=== PATIENT | female | born 1955 | race Caucasian/White ===

== ENCOUNTER → 2017-04-23 17:59 | Outpatient (CLI) | payer OTHER ==
[2013-03-09 11:13] VITALS: BMI 27.4
[~2017-04-23 17:59] MED LIST: ALEVE220 MG PO; AMOXICILLIN500 M1 PO; CENTRUM SILVER1 TA2 PO
== END | disposition home or self-care (01) ==
LOC: D.MAMMO 15:45
DX: Z12.31 Encounter for screening mammogram for malignant neoplasm of breast (principal)

== ENCOUNTER → 2017-05-14 16:55 | Outpatient (CLI) | payer OTHER ==
[2013-03-09 11:13] VITALS: BMI 27.4
[~2017-05-14 16:55] MED LIST changes: +FISH OIL 1,2001 CAP PO; +PROBIOTIC250 MG PO
[2017-06-05 11:31] VITALS: BMI 41.7
== END | disposition home or self-care (01) ==
LOC: D.MAMMO 08:30
DX: R92.8 Other abnormal and inconclusive findings on diagnostic imaging of breast (principal)

== ENCOUNTER 2017-06-05 08:40 | Day surgery (SDC) | payer OTHER ==
[2017-06-03 12:51] LABS: BASOPHILS 0.5 % (0-2); EOSINOPHILS 1.9 % (0-7); HEMATOCRIT 45.4 % (36.0-48.0); HEMOGLOBIN 15.5 g/dL (12-16); IMMATURE GRANULOCYTES 0.3 % (0-5); MCH 31.3 pg (26.0-34.0); MCHC 34.1 g/dL (31.0-37.0); MCV 91.7 fL (80.0-100.0); MEAN PLATELET VOLUME 10.1 fL (7.4-10.4); MONOCYTES 8.4 % (2-11); NEUTROPHILS 58.9 % (40-80); PLATELET COUNT 195 10x3/uL (130-400); RBC 4.95 10x6/uL (4.00-5.40); RDW 14.5 % (11.5-14.5); WBC 7.5 10x3/uL (4.8-10.8)
[2017-06-03 13:16] LABS: CALC OSMOLALITY 281 mosm/kg (275-300); CARBON DIOXIDE 26.8 mmol/L (21.0-32.0); CHLORIDE - SERUM 104 mmol/L (98-107); CREATININE - SERUM 0.8 mg/dL (0.6-1.3); GLUCOSE 85 mg/dL (74-106); POTASSIUM - SERUM 4.1 mmol/L (3.5-5.1); SODIUM 141 mmol/L (136-145); UREA NITROGEN 17 mg/dL (7-18); eGFR NON AFRICAN AMERICAN 76 mL/min (90-120)
[~2017-06-05] VITALS: Ht 170.2 cm; Wt 120.7 kg
--- NOTE | ~2017-06-05 | OP ---
PATIENT NAME: MARILIN MORGAN MEDICAL RECORD: [id number] :51 LOCATION:.[facility] ADMISSION DATE: SURGEON: BEAU KHAN MD DATE OF OPERATION: 06/05/2017 PREOPERATIVE DIAGNOSIS: Endometrial thickening on ultrasound. POSTOPERATIVE DIAGNOSIS: Endometrial polyps. PROCEDURE: Hysteroscopy, D&C, and polypectomy. SURGEON: Beau Khan MD. ANESTHESIA: General. INTRAVENOUS FLUIDS: Per anesthesia record. HYSTEROSCOPIC FLUID LOSS: Approximately 150 cc of 0.9 normal saline. SPECIMENS: Endometrial curettings and endometrial polyps. FINDINGS: 1. Grossly normal-appearing external genitalia and cervix. 2. Multiple endometrial polyps in the background of atrophic appearing endometrium. COMPLICATIONS: None apparent. PROCEDURE IN DETAIL: The patient was taken to the operating room where general anesthesia was achieved without difficulty. The patient was then prepped and draped in normal sterile fashion in the dorsal lithotomy position in the [facility]. Following prep and drape, the bladder was drained of approximately 50 cc of clear yellow urine. At this point, a Graves speculum was placed into the vagina. The cervix was identified and grasped on its anterior lip with a single tooth tenaculum. The uterus sounded to approximately 7.5 cm. At this point, dilation was performed for approximately 5-6 mm where a hysteroscope was then introduced into the uterine cavity. Two larger endometrial polyps were identified. The hysteroscopic scissors were used to excise them at the point of attachment to the endometrium. These were then removed and sent to pathology. Gentle curettage was performed of all 4 quadrants, which appeared to be atrophic. Minimal bleeding was noted from the cervical os and the tenaculum was removed. The patient tolerated procedure well, was transported to postanesthesia recovery stable without incident. TRANSINT:[id number] Voice Confirmation ID: [id number] DOCUMENT ID: [id number] BEAU KHAN MD at 1723 CC: [id number] DICTATION DATE: 06/14/17 06 DYE TANK TENDER: 06/14/17 1137 [facility] 06/05/17 [place] [address]
[2017-06-05 09:16] VITALS: BP 145/77; BMI 41.7
[2017-06-05 11:31] VITALS: Ht 170.2 cm; Wt 120.7 kg
== END 2017-06-05 13:50 | disposition home or self-care (01) ==
LOC: D.OPS 08:40
PROVIDERS: Obstetrics & Gynecology
DX: N95.0 Postmenopausal bleeding (principal); D25.9 Leiomyoma of uterus, unspecified; N84.0 Polyp of corpus uteri; Z01.812 Encounter for preprocedural laboratory examination

== ENCOUNTER → 2019-11-23 13:02 | Outpatient (CLI) | payer OTHER ==
[2017-06-05 11:31] VITALS: BMI 41.7
== END | disposition home or self-care (01) ==
LOC: D.MAMMO 13:00
PROVIDERS: ATTEND Obstetrics & Gynecology
DX: Z12.31 Encounter for screening mammogram for malignant neoplasm of breast (principal)